=== PATIENT | female | born 1985 | race Caucasian/White ===

== ENCOUNTER → 2019-07-07 | Outpatient (CLI) | payer BC ==
[~2019-07-07] MED LIST: LACTATED RINGER'S 1,000 ML ONE; LIDOCAINE HCL 2% LOCAL INJ 5 ML SDV VIAL INJ ONE; LORAZEPAM INJ 2 MG/ML VIAL ONE; PROPOFOL IV EMULSION 10 MG/ML 20 ML VIAL ONE
--- NOTE | 2019-07-10 13:58 | Diagnostic Imaging Report ---
MRI SPINE CERVICAL WO HISTORY: Severe numbness in arms COMPARISON: Report from MRI of the cervical spine dated 05/06/2017 TECHNIQUE: Sagittal T1, sagittal T2, sagittal inversion recovery, axial T2 and axial T1 weighted MR images of the cervical spine were obtained without intravenous contrast. Motion artifacts obscure some details. DISCUSSION: Alignment: Straightening of the cervical lordosis. No scoliosis. Vertebrae: No definite evidence for fractures, or neoplasm. Cervicomedullary junction: No abnormalities. Spinal cord: Normal in signal and morphology from the foramen magnum through T3-T4. 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 Mild multilevel cervical disc degeneration is present. There are nonspecific mild inflammatory endplate changes at C5-C6. There may be a small posterior annular fissure at C5-C6 as well. C2-C3: Patent canal and foramina. C3-C4: Small paracentral disc protrusion without significant canal or foraminal stenosis. C4-C5: Mild canal stenosis due to disc bulge. No significant foraminal stenosis. C5-C6: Disc bulge without significant canal or foraminal stenosis. C6-C7: Disc bulge without significant canal or foraminal stenosis. C7-T1: Patent canal and foramina. IMPRESSION: 1. Mild multilevel cervical disc degeneration with nonspecific mild inflammatory endplate changes at C5-C6. 2. Mild degenerative canal stenosis at C4-C5. 3. No significant foraminal stenosis. Signed by: Dr. Andrew Hernández M.D. on 07/10/2019 1:55 PM
== END ==
LOC: MRI 12:59
PROVIDERS: ATTEND Orthopaedic Surgery
DX: M54.2 Cervicalgia (principal); M48.02 Spinal stenosis, cervical region
CPT/HCPCS: 72141; 81025; J7121; J2001; J2060